=== PATIENT | male | born 1970 | race Caucasian/White ===

== ENCOUNTER → 2016-12-07 | Outpatient (CLI) | payer BC ==
--- NOTE | 2016-12-07 21:37 | PN ---
DATE OF SERVICE: 12/07/2016 This patient is a 46-year-old gentleman who has been followed in the sleep center for treatment of severe obstructive sleep apnea/hypopnea syndrome. Patient continues to use his CPAP equipment every night without significant problem related to the pressure or the mask. I checked patient's CPAP unit. The reading showed usage 28 out of 30 nights for more 4 hours. Average usage is 7.1 hours. Leak is 10 liters per minute which is in good range. Apnea-hypopnea index is 3.6 for the last month, which is normal range. Patient does not feel any sleepiness during the day. [place] Sleepiness Scale is 4. His weight is down from 231 pounds to 224 pounds. MEDICATIONS: 1. Metoprolol. 2. Losartan. 3. Ranitidine. During physical exam, the patient is in no distress. VITAL SIGNS: BP 128/75, HR 60, RR 16. Height 5 feet 7 inches. Weight 224. BMI 35.0. Temperature 97.7. HEENT: PERRLA, EOMI. Evaluation of oropharynx showed tongue protrudes midline; extremely low position of soft palate. NECK: Supple. No JVD. Thyroid is not palpable. LUNGS: Clear to percussion and to auscultation. Good air exchange. No wheezing or rhonchi. HEART: S1, S2 regular. No murmurs, gallops or rubs. ABDOMEN: Slightly obese. EXTREMITIES: No clubbing or cyanosis. ELECTRIC MULE DRIVER: Awake, alert, and oriented x3. Cranial nerves 2 to 7 intact. There is no fasciculation or atrophy noted. No focal deficits observed. IMPRESSION: 1. Severe obstructive sleep apnea/hypopnea syndrome, controlled with CPAP at 9 cm of water. Patient demonstrated good compliance and is benefitting from treatment. No symptoms of excessive daytime sleepiness. [place] Sleepiness Scale is 4. 2. Mild obesity; body mass index of 35.0. Patient lost her pounds since his previous visit. 3. Hypertension. 4. Acid reflux. 5. Status post vasectomy. PLAN: 1. Continue treatment with CPAP every night for the whole night. 2. Continue losing weight. 3. Sleep hygiene with regular time in bed for at least 8 hours. 4. No driving if feeling any sleepiness. Precautions related to driving. Patient is aware of civil and criminal liability for unsafe driving. 5. Prescription for all necessary CPAP supplies, including tube, filters and mask. Thank you very much for allowing me to participate in the management of your patient. Sincerely, Manjit Castro MD, PhD, FAASM. Diplomat of [place] [employer] Medicine, Sleep Medicine Board by [place], [place] [employer] of [employer]
== END | disposition home or self-care (01) ==
LOC: SLEEP 16:17
PROVIDERS: ATTEND Internal Medicine
DX: G47.33 Obstructive sleep apnea (adult) (pediatric) (principal); E66.9 Obesity, unspecified; Z68.35 Body mass index [BMI] 35.0-35.9, adult; I10 Essential (primary) hypertension; K21.9 Gastro-esophageal reflux disease without esophagitis; Z98.52 Vasectomy status; Z79.899 Other long term (current) drug therapy

== ENCOUNTER → 2017-01-02 | Outpatient (CLI) | payer BC ==
[2017-01-02 17:25] LABS: Anion Gap 11 mmol/L; Blood Urea Nitrogen 17 mg/dL (9-20); Calcium 8.9 mg/dL (8.4-10.2); Carbon Dioxide 27 mmol/L (22-30); Chloride 103 mmol/L (98-107); Glucose 82 mg/dL (74-99); Magnesium 2.1 mg/dL (1.6-2.3); Non-African American GFR(MDRD) >60 (>60 ml/min/1.73 sqM); Sodium 141 mmol/L (137-145)
== END | disposition home or self-care (01) ==
LOC: LABWHC1 16:43
PROVIDERS: ATTEND Internal Medicine
DX: I10 Essential (primary) hypertension (principal)
CPT/HCPCS: 36415; 80048; 83735

== ENCOUNTER → 2017-08-17 | Outpatient (CLI) | payer BC ==
[2017-08-17 08:27] LABS: Basophils # (A) 0.1 k/uL (0-0.2); Basophils % (A) 1 %; CH 32.3; CHCM 34.7; Eosinophils # (A) 0.4 k/uL (0-0.7); Eosinophils % (A) 5 %; HCT 43.6 % (39.0-53.0); HDW 2.93; HGB 14.7 gm/dL (13.0-17.5); Luc # (Auto) 0.13; Luc % (Auto) 2; Lymphocytes # (A) 1.6 k/uL (1.0-4.8); Lymphocytes % (A) 21 %; MCH 31.6 pg (25.0-35.0); MCHC 33.8 g/dL (31.0-37.0); MCV 93.5 fL (80.0-100.0); Mean Platelet Volume 7.4; Monocytes # (A) 0.6 k/uL (0-1.0); Monocytes % (A) 8 %; Neutrophils # (A) 4.7 k/uL (1.3-7.7); Neutrophils % (A) 64 %; RBC 4.66 m/uL (4.30-5.90); RDW 14.6 % (11.5-15.5); WBC 7.4 k/uL (3.8-10.6)
[2017-08-17 08:44] LABS: Appearance,Urine Clear (Clear); Bilirubin,Urine Negative (Negative); Glucose,Urine (UA) Negative (Negative); Ketones,Urine Negative (Negative); Leukocyte Esterase,Urine Negative (Negative); Nitrite,Urine Negative (Negative); PH, Urine 5.5 (5.0-8.0); Protein,Urine Trace (Negative); Specific Gravity,Urine 1.021 (1.001-1.035); UA Billing (MACRO vs. MICRO) CHEM; Urobilinogen,Urine <2.0 mg/dL (<2.0)
[2017-08-17 09:14] LABS: ALT 37 U/L (21-72); AST 21 U/L (17-59); Alkaline Phosphatase 55 U/L (38-126); Anion Gap 8 mmol/L; Blood Urea Nitrogen 19 mg/dL (9-20); Calcium 9.2 mg/dL (8.4-10.2); Carbon Dioxide 29 mmol/L (22-30); Chloride 106 mmol/L (98-107); Cholesterol 140 mg/dL (<200); Creatine Kinase 151 U/L (55-170); Glucose 95 mg/dL (74-99); HDL Cholesterol 33 mg/dL (40-60); Non-African American GFR(MDRD) 51 (>60 ml/min/1.73 sqM); Potassium 4.3 mmol/L (3.5-5.1); Sodium 143 mmol/L (137-145); Total Bilirubin 0.7 mg/dL (0.2-1.3); Total Protein 6.7 g/dL (6.3-8.2); Uric Acid 6.9 mg/dL (3.5-8.5)
[2017-08-17 09:46] LABS: Prostate Specific Antigen 0.63 ng/mL (0.00-4.00)
== END | disposition home or self-care (01) ==
LOC: LABWHC1 07:33
PROVIDERS: ATTEND Internal Medicine
DX: G47.33 Obstructive sleep apnea (adult) (pediatric) (principal); N40.0 Benign prostatic hyperplasia without lower urinary tract symptoms; J30.2 Other seasonal allergic rhinitis; I10 Essential (primary) hypertension
CPT/HCPCS: 36415; 80053; 80061; 81003; 82306; 82550; 83036; 83735; 84153; 84439; 84443; 84550; 85025

== ENCOUNTER → 2018-03-07 | Outpatient (CLI) | payer BC ==
--- NOTE | 2018-03-07 18:08 | PN ---
PROGRESS NOTE DATE OF SERVICE: 03/07/2018 This 47-year-old gentleman has been followed in Sleep Center for treatment of obstructive sleep apnea-hypopnea syndrome. Patient continues to use his CPAP equipment every night for the whole night without significant problems related to mask fitting, pressure, or humidification. [place] Sleepiness Scale today is 4. The patient demonstrated good compliance with treatment. His weight is up comparing with the previous visit, on 8 pounds. MEDICATIONS: Metoprolol, losartan, Ranitidine. PHYSICAL EXAM: Patient in no distress. BP 124/81, HR 73, RR 16, height 5 feet 7 inches, weight 232.2, BMI 36.3, temperature 97.8. Oxygen saturation on room air 96%. Oropharynx: Extremely low position of soft palate. Neck Supple, no JVD. Thyroid is not palpable. LUNGS Clear to percussion and to auscultation. Good air exchange. No wheezing or rhonchi. HEART S1, S2 regular. No murmurs, gallops, or rubs. ABDOMEN: Slightly obese. Soft and nontender. Bowel sounds are present. No organomegaly appreciated. EXTREMITIES No clubbing or cyanosis. GIS SPECIALIST Awake, alert, and oriented X3. Cranial nerves 2 to 7 intact. There is no fasciculation or atrophy. noted. No focal deficits observed. IMPRESSION: 1. Severe obstructive sleep apnea-hypopnea syndrome. The patient demonstrated good compliance with treatment benefitting from treatment. 2. Mild obesity BMI 36.3. 3. Hypertension. 4. Acid reflux. 5. Status post vasectomy. PLAN: 1. Patient will continue to use CPAP equipment every night for the whole night. 2. Losing weight. 3. Sleep hygiene with regular time bed for at least 8 hours. 4. No driving if feeling sleepiness. Thank you very much for allowing me to participate in management of your patient. Sincerely, Manjit Castro MD, PhD, FAASM Diplomat of [place] [employer] Specialties [place] Board of Internal Medicine Cardiac Cath Lab Radiology Technologist of [facility] [place] MMODL / GARLANDN: [id number] /
== END | disposition home or self-care (01) ==
LOC: SLEEP 16:42
PROVIDERS: ATTEND Internal Medicine
DX: G47.33 Obstructive sleep apnea (adult) (pediatric) (principal); E66.9 Obesity, unspecified; I10 Essential (primary) hypertension; K21.9 Gastro-esophageal reflux disease without esophagitis; Z98.890 Other specified postprocedural states; Z68.36 Body mass index [BMI] 36.0-36.9, adult; Z99.89 Dependence on other enabling machines and devices; Z79.899 Other long term (current) drug therapy

== ENCOUNTER → 2018-08-30 | Outpatient (CLI) | payer BC ==
[2018-08-30 09:51] LABS: Basophils # (A) 0.1 k/uL (0-0.2); Basophils % (A) 1 %; Eosinophils # (A) 0.3 k/uL (0-0.7); Eosinophils % (A) 5 %; HGB 15.2 gm/dL (13.0-17.5); Lymphocytes # (A) 1.7 k/uL (1.0-4.8); Lymphocytes % (A) 26 %; MCH 31.4 pg (25.0-35.0); MCHC 33.8 g/dL (31.0-37.0); MCV 92.7 fL (80.0-100.0); Mean Platelet Volume 6.8; Monocytes # (A) 0.5 k/uL (0-1.0); Monocytes % (A) 8 %; Neutrophils # (A) 3.7 k/uL (1.3-7.7); Neutrophils % (A) 58 %; Platelet Count 300 k/uL (150-450); RBC 4.86 m/uL (4.30-5.90); RDW 13.4 % (11.5-15.5); WBC 6.4 k/uL (3.8-10.6)
[2018-08-30 11:16] LABS: Appearance,Urine Clear (Clear); Bilirubin,Urine Negative (Negative); Blood,Urine Negative (Negative); Color,Urine Yellow; Glucose,Urine (UA) Negative (Negative); Ketones,Urine Negative (Negative); Leukocyte Esterase,Urine Negative (Negative); Nitrite,Urine Negative (Negative); PH, Urine 5.5 (5.0-8.0); Protein,Urine Negative (Negative); Specific Gravity,Urine 1.017 (1.001-1.035); Urobilinogen,Urine <2.0 mg/dL (<2.0)
[2018-08-30 15:43] LABS: Albumin 4.3 g/dL (3.80-4.90); Albumin/Globulin Ratio 2.26 (1.20-2.10); Anion Gap 5.8 mmol/L (4.00-12.00); Calcium 9.4 mg/dL (8.7-10.3); Carbon Dioxide 27.2 mmol/L (21.6-31.8); Globulin 1.9 g/dL (2.1-3.7); LDL Cholesterol,Calculated 90.2 mg/dL (0.0-131.0); Magnesium 1.8 mg/dL (1.5-2.4); Potassium 4.3 mmol/L (3.5-5.5); Total Bilirubin 0.5 mg/dL (0.3-1.2); Total Protein 6.2 g/dL (6.2-8.2); Uric Acid 6.7 mg/dL (3.7-8.7); VLDL Calculation 22.8 mg/dL (5.00-40.00)
[2018-08-30 15:50] LABS: T4, Free (Free Thyroxine) 1.2 ng/dL (0.80-1.80)
[2018-08-30 17:21] LABS: Hemoglobin A1C 5.4 % (4.0-6.0)
== END | disposition home or self-care (01) ==
LOC: LABWHC1 08:39
PROVIDERS: ATTEND Internal Medicine
DX: G47.33 Obstructive sleep apnea (adult) (pediatric) (principal); E66.9 Obesity, unspecified; I10 Essential (primary) hypertension; N40.0 Benign prostatic hyperplasia without lower urinary tract symptoms
CPT/HCPCS: 36415; 80053; 80061; 81003; 82306; 83036; 83735; 84153; 84439; 84443; 84550; 85025

== ENCOUNTER → 2019-05-08 | Outpatient (CLI) | payer BC ==
--- NOTE | 2019-05-08 17:45 | PN ---
PROGRESS NOTE DATE OF SERVICE: 05/08/2019 This patient is a 48-year-old gentleman who has been followed in the sleep center for treatment of obstructive sleep apnea-hypopnea syndrome. The patient has two CPAP units: one [place] The patient continues to use CPAP equipment every night for the whole night. No snoring with the machine. No excessive daytime sleepiness. [place] Sleepiness Scale is 5. I checked both units. For the last year, for 365 nights the patient used one unit 85 nights and another unit for 275 nights, which is totally 361 nights of usage. This showed very good compliance. Average usage is 7.3 hours. Reading from the machine showed CPAP pressure 9 cm of water, apnea-hypopnea index 2.3, with leak around 8 L/minute, which is in normal range. MEDICATIONS: 1. Metoprolol. 2. Losartan. 3. Ranitidine. PHYSICAL EXAMINATION: GENERAL: A pleasant gentleman without distress. VITAL SIGNS: BP 132/90, HR 72, RR 16, height 5 feet 7 inches, weight 232 pounds. Body mass index 36.3. Temperature 98.1, oxygen saturation at room air 98%. HEENT: PERRLA, EOMI. Evaluation of oropharynx showed tongue protrudes midline. Low position of soft palate. Mallampati IV. NECK: Supple. No JVD. Thyroid is not palpable. LUNGS: Clear to percussion and to auscultation. Good air exchange. No wheezing or rhonchi. HEART: S1, S2 regular. No murmurs, gallops or rubs. ABDOMEN: Obese. EXTREMITIES: No clubbing or cyanosis. CHOCOLATE COATER: Awake, alert, and oriented X3. Cranial nerves 2 to 7 intact. There is no fasciculation or atrophy. noted. No focal deficits observed. IMPRESSION: 1. Severe obstructive sleep apnea-hypopnea syndrome. Patient demonstrated practically 100% compliance with treatment, benefitting from treatment. 2. Hypertension. 3. Acid reflux. 4. Mild obesity. 5. Status post vasectomy. PLAN: 1. Patient will continue to use CPAP equipment every night for the whole night. 2. Losing weight. 3. Sleep hygiene with regular time in bed for 7-1/2 to 8 hours. 4. Precautions related to driving. No driving if feeling any sleepiness. 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 He is aware of civil and criminal liability for unsafe driving. 5. We will maintain all necessary prescriptions for CPAP supplies, including mask, tube, filters. Patient is using Mirage FX standard nasal mask. Thank you very much for allowing me to participate in the management of your patient. Sincerely, Manjit Castro MD, PhD, FAASM Diplomat of [employer] Board of [employer] Specialties [employer] Board of Internal Medicine [place] Technician of [facility] [place] MMODL / GARLANDN: [id number] /
== END | disposition home or self-care (01) ==

== ENCOUNTER → 2019-08-30 | Outpatient (CLI) | payer BC ==
[2019-08-30 08:35] LABS: Basophils # (A) 0.1 k/uL (0-0.2); Basophils % (A) 1 %; Eosinophils # (A) 0.4 k/uL (0-0.7); Eosinophils % (A) 7 %; HCT 41.8 % (39.0-53.0); HGB 14.8 gm/dL (13.0-17.5); Lymphocytes # (A) 1.2 k/uL (1.0-4.8); Lymphocytes % (A) 21 %; MCH 31.7 pg (25.0-35.0); MCHC 35.3 g/dL (31.0-37.0); MCV 89.9 fL (80.0-100.0); Mean Platelet Volume 5.7; Monocytes # (A) 0.5 k/uL (0-1.0); Monocytes % (A) 9 %; Neutrophils # (A) 3.5 k/uL (1.3-7.7); Neutrophils % (A) 61 %; Platelet Count 311 k/uL (150-450); RBC 4.65 m/uL (4.30-5.90); RDW 13.4 % (11.5-15.5); WBC 5.8 k/uL (3.8-10.6)
[2019-08-30 16:57] LABS: African American GFR (CKD) 69.3 (60.0-200.0); Albumin 4.4 g/dL (3.80-4.90); Albumin/Globulin Ratio 2.32 (1.60-3.17); Anion Gap 6.2 mmol/L (4.00-12.00); Calcium 9.4 mg/dL (8.7-10.3); Carbon Dioxide 27.8 mmol/L (21.6-31.8); Chol/HDL Ratio 4.41; Globulin 1.9 g/dL (1.6-3.3); LDL Cholesterol,Calculated 87.8 mg/dL (0.0-131.0); Magnesium 1.9 mg/dL (1.5-2.4); Non-African American GFR(CKD) 59.8 (60.0-200.0); Potassium 4.2 mmol/L (3.5-5.5); Total Bilirubin 0.6 mg/dL (0.3-1.2); Total Protein 6.3 g/dL (6.2-8.2); VLDL Calculation 21.2 mg/dL (5.00-40.00)
[2019-08-30 20:23] LABS: Hemoglobin A1C 5.1 % (4.0-6.0)
== END | disposition home or self-care (01) ==
LOC: LABWHC1 07:56
PROVIDERS: ATTEND Internal Medicine
DX: I10 Essential (primary) hypertension (principal); E78.2 Mixed hyperlipidemia; N40.0 Benign prostatic hyperplasia without lower urinary tract symptoms
CPT/HCPCS: 36415; 80053; 80061; 83036; 83735; 84153; 84443; 85025

== ENCOUNTER → 2020-09-03 | Outpatient (CLI) | payer BC ==
[2020-09-03 08:09] LABS: Basophils # (A) 0.1 k/uL (0-0.2); Basophils % (A) 1 %; Eosinophils # (A) 0.3 k/uL (0-0.7); Eosinophils % (A) 5 %; HCT 45.5 % (39.0-53.0); Lymphocytes # (A) 1.6 k/uL (1.0-4.8); Lymphocytes % (A) 24 %; MCH 31.6 pg (25.0-35.0); MCHC 35.1 g/dL (31.0-37.0); MCV 90.1 fL (80.0-100.0); Mean Platelet Volume 6.7; Monocytes # (A) 0.6 k/uL (0-1.0); Monocytes % (A) 9 %; Neutrophils % (A) 60 %; Platelet Count 286 k/uL (150-450); RBC 5.05 m/uL (4.30-5.90); RDW 12.6 % (11.5-15.5); WBC 6.6 k/uL (3.8-10.6)
[2020-09-03 10:46] LABS: African American GFR (CKD) 75.3 (60.0-200.0); Albumin 4.5 g/dL (3.80-4.90); Albumin/Globulin Ratio 2.05 (1.60-3.17); Anion Gap 4.9 mmol/L (4.00-12.00); BUN/Creat Ratio 16.15 Ratio (12.00-20.00); Calcium 9.7 mg/dL (8.7-10.3); Carbon Dioxide 29.1 mmol/L (21.6-31.8); Chol/HDL Ratio 5.6; Globulin 2.2 g/dL (1.6-3.3); LDL Cholesterol,Calculated 108.6 mg/dL (0.0-131.0); Potassium 3.9 mmol/L (3.5-5.5); Total Bilirubin 0.7 mg/dL (0.2-1.2); Total Protein 6.7 g/dL (6.2-8.2); VLDL Calculation 29.4 mg/dL (5.00-40.00)
[2020-09-03 10:56] LABS: Prostate Specific Antigen 0.5 ng/mL (0.0-2.5)
== END | disposition home or self-care (01) ==
LOC: LABWHC1 07:10
PROVIDERS: ATTEND Internal Medicine
DX: Z00.00 Encounter for general adult medical examination without abnormal findings (principal); N40.0 Benign prostatic hyperplasia without lower urinary tract symptoms; E78.2 Mixed hyperlipidemia
CPT/HCPCS: 36415; 80053; 80061; 84153; 84443; 85025

== ENCOUNTER → 2021-07-07 | Outpatient (CLI) | payer BC ==
--- NOTE | 2021-07-07 17:36 | US ---
EXAMINATION TYPE: US kidneys/renal and bladder DATE OF EXAM: 07/07/2021 COMPARISON: 01/25/2011 CLINICAL HISTORY: 50-year-old male R94.4 Abn results kidney function studies. Patient states there is an "area" his doctor follows on the left kidney. EXAM MEASUREMENTS: Right Kidney: 11.4 x 4.6 x 6.6 cm Left Kidney: 11.2 x 4.4 x 6.1 cm Right Kidney: No hydronephrosis . Left Kidney: 1.4 x 0.6 x 0.7cm somewhat linear echogenic area noted within the midpole cortex. The pr eviously seen small 8 mm cortical lesion, probable cyst in 2010 is no longer seen. Bladder: wnl IMPRESSION: 1. No hydronephrosis. 2. A 1.4 x 0.7 cm somewhat linear echogenic area within the left midpole renal cortex. This may repre sent an area of cortical scarring, not seen in 2011. Six-month follow-up ultrasound to reassess.
== END | disposition home or self-care (01) ==
LOC: RADUSWWP 12:08
PROVIDERS: ATTEND Internal Medicine
DX: R93.422 Abnormal radiologic findings on diagnostic imaging of left kidney (principal)
CPT/HCPCS: 76770

== ENCOUNTER → 2022-04-19 | Outpatient (CLI) | payer BC ==
--- NOTE | 2022-04-19 16:44 | P.PN ---
Subjective DATE: 04/19/2022 FOLLOW UP VISIT. Patient with obstructive sleep apnea hypopnea syndrome return to sleep center for follow-up visit. Information from previous visit have been reviewed. Patient is using PAP equipment every night for the whole night, getting PAP supplies in time. She received new Pap unit. The patient does not have significant problems with the mask, PAP unit and humidification. [place] sleepiness scale is for. I checked information from PAP unit. PAP unit pressure 512, average 10.5 cm H2O. Usage is 100 % for more then 4 hours patient is using 2 Units, average 6.8 hours per night. Leak is 7.8 l/m, which is in acceptable range. Apnea Hypopnea Index is 2.1, which is normal. MEDICATIONS:1. Metoprolol 50 mg once a day 2. Atorvastatin 40 mg once a day 3. Losartan hydrochlorothiazide 66037 milligrams once a day 4. Famotidine 40 mg once a day During physical exam: GENERAL: A pleasant patient without any distress. VITAL SIGNS: BP 118/80, HR 69, RR 16, weight 229.4, temperature 97.1, oxygen saturation at room air 97 % . HEENT: PERRLA, EOMI.low position of soft palate, Mallapati 4. NECK: Supple. No JVD. LUNGS: Clear to percussion and to auscultation. Good air exchange. No wheezing or rhonchi. HEART: S1, S2 regular. ABDOMEN: Soft and nontender. Obese EXTREMITIES: No clubbing or cyanosis. SAND TECHNICIAN: Awake, alert, and oriented x3. No focal deficit. Impressions: 1. Obstructive sleep apnea-hypopnea syndrome. Patient demonstrated great compliance with treatment, benefiting from treatment. 2. Hypertension. 3. Acid reflux. 4. Mild obesity. 5. Status post vasectomy. 6. Status post must tonsillectomy in childhood. Plan: 1. Continue using PAP equipment every night for the whole night. 2. To change air filter at least 1-2 times per month. 3. PAP unit should stay lower then position of the head. 4. Advised patient to remove all remaining water from humidifier canister daily and make it dry after each usage. Refill canister with fresh distilled water before each usage. 5. Sleep hygiene with regular time in bed for at least 8 hours. 6. Precautions related to driving. No driving if feel any sleepiness. 7. I will maintain prescription for PAP supplies including mask, tube, filters. 8. Follow up visit in 6 months or earlier if patient has any problems. 9. Watching and losing weight. Thank you very much for allowing me to participate in the management of your patient. Manjit Castro MD, PhD, FAASM. Diplomat of [employer] Board of Sleep Medicine, Sleep Medicine Board by [employer] of [employer] Medicine Enrollment Coordinator of [facility] [place]
== END ==
LOC: SLEEP 16:14
PROVIDERS: ATTEND Internal Medicine
DX: G47.33 Obstructive sleep apnea (adult) (pediatric) (principal); I10 Essential (primary) hypertension; K21.9 Gastro-esophageal reflux disease without esophagitis; E66.9 Obesity, unspecified; Z90.09 Acquired absence of other part of head and neck; Z98.52 Vasectomy status; Z99.89 Dependence on other enabling machines and devices; Z79.899 Other long term (current) drug therapy

== ENCOUNTER → 2022-09-23 | Outpatient (CLI) | payer BC ==
[2022-09-23 09:59] LABS: Appearance,Urine Clear (Clear); Bilirubin,Urine Negative (Negative); Blood,Urine Negative (Negative); Color,Urine Yellow; Glucose,Urine (UA) Negative (Negative); Ketones,Urine Negative (Negative); Leukocyte Esterase,Urine Negative (Negative); Nitrite,Urine Negative (Negative); PH, Urine 5.5 (5.0-8.0); Protein,Urine Negative (Negative); Specific Gravity,Urine 1.019 (1.001-1.035); Urobilinogen,Urine <2.0 mg/dL (<2.0)
[2022-09-23 11:54] LABS: Basophils # (A) 0.06 X 10*3/uL (0.00-0.10); Basophils % (A) 0.9 %; Eosinophils # (A) 0.28 X 10*3/uL (0.04-0.35); Eosinophils % (A) 4.1 %; HCT 41.3 % (39.6-50.0); HGB 14.8 g/dL (13.0-17.0); Immature Grans, Automated 0.4 %; Lymphocytes # (A) 1.62 X 10*3/uL (0.90-5.00); Lymphocytes % (A) 23.5 %; MCH 31.6 pg (27.0-32.0); MCHC 35.8 g/dL (32.0-37.0); MCV 88.1 fL (80.0-97.0); Mean Platelet Volume 9.3 fL (9.5-12.2); Monocytes # (A) 0.74 X 10*3/uL (0.20-1.00); Monocytes % (A) 10.7 %; NRBC Per 100 WBC 0 /100 WBCS (0.0-0.0); Neutrophils # (A) 4.17 X 10*3/uL (1.80-7.70); Neutrophils % (A) 60.4 %; Platelet Count 286 X 10*3/uL (140-440); RBC 4.69 X 10*6/uL (4.40-5.60); RDW 13.2 % (11.5-14.5)
[2022-09-23 12:18] LABS: ALT 44 U/L (10-49); AST 28 U/L (14-35); African American GFR (CKD) 72.9 (60.0-200.0); Albumin 4.3 g/dL (3.8-4.9); Albumin/Globulin Ratio 2.13 (1.60-3.17); Alkaline Phosphatase 72 U/L (41-126); BUN/Creat Ratio 14.55 Ratio (12.00-20.00); Blood Urea Nitrogen 19.2 mg/dL (9.0-27.0); Calcium 9.5 mg/dL (8.7-10.3); Carbon Dioxide 26.8 mmol/L (20.0-27.5); Chloride 105 mmol/L (96-109); Chol/HDL Ratio 3.15 Ratio; Glucose 94 mg/dL (70-110); LDL Cholesterol,Calculated 51.9 mg/dL (0.0-131.0); Non-African American GFR(CKD) 62.9 (60.0-200.0); Sodium 142 mmol/L (135-145); Total Protein 6.4 g/dL (6.2-8.2); Uric Acid 6.2 mg/dL (3.7-8.7)
== END | disposition home or self-care (01) ==
LOC: LABWHC1 07:06
PROVIDERS: ATTEND Internal Medicine
DX: I10 Essential (primary) hypertension (principal); E78.2 Mixed hyperlipidemia; G47.33 Obstructive sleep apnea (adult) (pediatric); N40.0 Benign prostatic hyperplasia without lower urinary tract symptoms
CPT/HCPCS: 36415; 80053; 80061; 81003; 82306; 83036; 83735; 84153; 84439; 84443; 84550; 85025

== ENCOUNTER 2022-12-29 12:23 | Day surgery (SDC) | payer BC ==
[2022-12-26 15:56] VITALS: BMI 34.2
[~2022-12-29 12:23] MED LIST: LACTATED RINGERS 1,000 ML IV SCH; LIDOCAINE 1% (10MG/ML) FOR IV START INTRADERMA PRN
[2022-12-29 13:24] VITALS: RESP 16; TEMP 97.2
[2022-12-29] MEDS ORDERED: fentaNYL (PF) 50 MCG/ML 2 ML AMP ONE (14:19)
[2022-12-29] MEDS ORDERED: MIDAZOLAM 2 MG/2 ML VIAL ONE (14:19)
[2022-12-29] MEDS ORDERED: PROPOFOL 10 MG/ML 20 ML VIAL IV ONE (14:19)
--- NOTE | 2022-12-29 14:38 | P.PCN ---
Date of Procedure: 12/29/22 Procedure(s) Performed: BRIEF HISTORY: Patient is a 52-year-old pleasant white male scheduled for an elective colonoscopy as a part of screening for colon cancer. PROCEDURE PERFORMED: Colonoscopy. PREOPERATIVE DIAGNOSIS: Screening for colon cancer. IV sedation per Anesthesia. PROCEDURE: After informed consent was obtained, the patient, was brought into the endoscopy unit. IV sedation was administered by Anesthesia under continuous monitoring. Digital rectal examination was normal. Initially the Olympus CF-160 flexible video colonoscope was then inserted in the rectum, gradually advanced into the cecum without any difficulty. Careful examination was performed as the scope was gradually being withdrawn. Ileocecal valve and the appendiceal orifice were visualized and appeared normal. Prep was excellent. Mucosa of the cecum, ascending colon, transverse colon, descending colon, sigmoid colon, and rectum appeared normal. Retroflexion was performed in the rectum and no lesions were seen. The patient tolerated the procedure well. IMPRESSION: Normal-appearing colon from rectum to cecum no evidence of colorectal neoplasia. RECOMMENDATIONS: Findings of this examination were discussed with the patient as well as his family. He was advised to have a repeat screening colonoscopy in 10 years..
[2022-12-29 15:04] VITALS: BP 121/81; PULSE 67
== END 2022-12-29 15:12 | disposition home or self-care (01) ==
LOC: ORWHC2ENDO 12:23
PROVIDERS: ATTEND Internal Medicine Gastroenterology
DX: Z12.11 Encounter for screening for malignant neoplasm of colon (principal); I10 Essential (primary) hypertension; G47.33 Obstructive sleep apnea (adult) (pediatric); Z87.891 Personal history of nicotine dependence
CPT/HCPCS: 45378; J2250; J3010; J2704

== ENCOUNTER → 2023-06-06 | Outpatient (CLI) | payer BC ==
--- NOTE | 2023-06-06 17:43 | P.PN ---
Subjective DATE: 06/06/2023 FOLLOW UP VISIT. Patient with obstructive sleep apnea hypopnea syndrome return to sleep center for follow-up visit. Information from previous visit have been reviewed. Patient is using PAP equipment every night for the whole night, getting PAP supplies in time. The patient does not have significant problems with the mask, PAP unit and humidification. [place] sleepiness scale is 4, which is normal. I checked information from PAP unit. PAP unit pressure 5-12, average 7.4 cm H2O. Usage is 100 % for more then 4 hours, average 7 hours per night. Several nights patient used his portable CPAP ResMed unit. Leak is 10.6 l/m, which is in acceptable range. Apnea Hypopnea Index is 1.4, which is normal. MEDICATIONS:1. Metoprolol 25 mg once a day 2. Famotidine 40 mg once a day 3. Atorvastatin 40 mg once a day 4. Losartan 100 mg once a day During physical exam: GENERAL: A pleasant patient without any distress. VITAL SIGNS: BP 143/89, HR 74, RR 12 , weight 187.4, temperature 97.5, oxygen saturation at room air 98 % . HEENT: PERRLA, EOMI.low position of soft palate, Mallapati 4 . NECK: Supple. No JVD. LUNGS: Clear to percussion and to auscultation. Good air exchange. No wheezing or rhonchi. HEART: S1, S2 regular. ABDOMEN: Soft and nontender.[] EXTREMITIES: No clubbing or cyanosis. ADJUTANT GENERAL: Awake, alert, and oriented x3. No focal deficit. Impressions: 1. Obstructive sleep apnea-hypopnea syndrome. Patient demonstrated great compliance with treatment, benefiting from treatment. 2. Hypertension. 3. Acid reflux. 4. Status post vasectomy. 5. Overweight, patient lost 40 pounds since previous visit, present body mass and is 29.7. 6. Status post tonsillectomy. 7. package delivery driver. Plan: 1. Continue using PAP equipment every night for the whole night. 2. To change air filter at least 1-2 times per month. 3. PAP unit should stay lower then position of the head. 4. Advised patient to remove all remaining water from humidifier canister daily and make it dry after each usage. Refill canister with fresh distilled water before each usage. 5. Sleep hygiene with regular time in bed for at least 8 hours. 6. Precautions related to driving. No driving if feel any sleepiness. 7. I will maintain prescription for PAP supplies including mask, tube, filters. 8. Follow up visit in 6 months or earlier if patient has any problems. 9. Watching weight. Thank you very much for allowing me to participate in the management of your patient. Manjit Castro MD, PhD, FAASM. Diplomat of [place] Board of Sleep Medicine, Sleep Medicine Board by [place] [employer] of Internal Medicine Claim Clerk of [facility] [place]
== END ==
LOC: 3 N SLEEP 16:33
PROVIDERS: ATTEND Internal Medicine
DX: G47.33 Obstructive sleep apnea (adult) (pediatric) (principal); I10 Essential (primary) hypertension; K21.9 Gastro-esophageal reflux disease without esophagitis; E66.3 Overweight; Z98.52 Vasectomy status; Z79.899 Other long term (current) drug therapy; Z98.890 Other specified postprocedural states; Z99.89 Dependence on other enabling machines and devices
CPT/HCPCS: 99212

== ENCOUNTER → 2023-10-05 | Outpatient (CLI) | payer BC ==
[2023-10-05 15:12] LABS: HCT 41.4 % (39.6-50.0); HGB 14.3 g/dL (13.0-17.0); MCH 31.3 pg (27.0-32.0); MCHC 34.5 g/dL (32.0-37.0); MCV 90.6 FL (80.0-97.0); Mean Platelet Volume 9.5 FL (9.5-12.2); NRBC Per 100 WBC 0 X 10*3/uL (0.00-0.01); Platelet Count 263 X 10*3/uL (140-440); RBC 4.57 X 10*6/uL (4.40-5.60); RDW 13.2 % (11.5-14.5); WBC 5.59 X 10*3/uL (4.50-10.00)
[2023-10-05 15:47] LABS: ALT 24 U/L (10-49); AST 19 U/L (14-35); Albumin 4.3 g/dL (3.8-4.9); Albumin/Globulin Ratio 2.26 Ratio (1.60-3.17); Alkaline Phosphatase 66 U/L (41-126); BUN/Creat Ratio 10.27 Ratio (12.00-20.00); Blood Urea Nitrogen 11.3 mg/dL (9.0-27.0); Calcium 9.3 mg/dL (8.7-10.3); Carbon Dioxide 25.8 mmol/L (21.6-31.8); Chloride 106 mmol/L (96-109); Chol/HDL Ratio 1.94 Ratio; Globulin 1.9 g/dL (1.6-3.3); Glucose 84 mg/dL (70-110); LDL Cholesterol,Calculated 32.3 mg/dL (0.0-131.0); Magnesium 1.9 mg/dL (1.5-2.4); Potassium 4.4 mmol/L (3.5-5.5); Prostate Specific Antigen 0.42 ng/mL (0.000-3.500); Sodium 140 mmol/L (135-145); Total Bilirubin 0.5 mg/dL (0.3-1.2); Total Protein 6.2 g/dL (6.2-8.2)
== END | disposition home or self-care (01) ==
LOC: LABWHC1 08:26
PROVIDERS: ATTEND Internal Medicine
DX: Z00.01 Encounter for general adult medical examination with abnormal findings (principal); I10 Essential (primary) hypertension; N40.0 Benign prostatic hyperplasia without lower urinary tract symptoms; G47.33 Obstructive sleep apnea (adult) (pediatric); E78.2 Mixed hyperlipidemia
CPT/HCPCS: 36415; 80053; 80061; 82306; 83036; 83735; 84153; 84443; 85027

== ENCOUNTER → 2023-12-13 | Outpatient (CLI) | payer BC ==
--- NOTE | 2023-12-13 17:20 | P.SLEEP ---
History of Present Illness DATE: 12/13/2023 FOLLOW UP VISIT. Patient with obstructive sleep apnea hypopnea syndrome return to sleep center for follow-up visit. Information from previous visit have been reviewed. Patient is using PAP equipment every night for the whole night, getting PAP supplies in time. The patient does not have significant problems with the mask, PAP unit and humidification. [place] sleepiness scale is 3, which is normal. I checked information from PAP unit. PAP unit pressure 5-12, average 7.5 cm H2O. Usage is 100% for more then 4 hours, average 6 and 75 hours per night. Leak is 4.5 l/m, which is in acceptable range. Apnea Hypopnea Index is 1.61, which is normal. MEDICATIONS:1. Metoprolol 25 mg once a day 2. Atorvastatin 40 mg once a day 3. Losartan 100 mg once a day 4. Famotidine 40 mg once a day 5. Wegovy 1.7 mg once a week During physical exam: GENERAL: A pleasant patient without any distress. VITAL SIGNS: Please see below. HEENT: PERRLA, EOMI.low position of soft palate, Mallapati[] . NECK: Supple. No JVD. LUNGS: Clear to percussion and to auscultation. Good air exchange. No wheezing or rhonchi. HEART: S1, S2 regular. ABDOMEN: Soft and nontender.[] EXTREMITIES: No clubbing or cyanosis. PERSONAL INJURY LEGAL ASSISTANT: Awake, alert, and oriented x3. No focal deficit. Impressions: 1. Obstructive sleep apnea-hypopnea syndrome. Patient demonstrated great compliance with treatment, benefiting from treatment. 2. Hypertension. 3. Acid reflux. 4. Status post vasectomy. 5. Status post tonsillectomy. 6. Overweight BMI 29.4. 7. local hazmat driver. Plan: 1. Continue using PAP equipment every night for the whole night. 2. To change air filter at least 1-2 times per month. 3. PAP unit should stay lower then position of the head. 4. Advised patient to remove all remaining water from humidifier canister daily and make it dry after each usage. Refill canister with fresh distilled water before each usage. 5. Sleep hygiene with regular time in bed for at least 8 hours. 6. Precautions related to driving. No driving if feel any sleepiness. 7. I will maintain prescription for PAP supplies including mask, tube, filters. 8. Watching weight. 9. Follow up visit in 6 months or earlier if patient has any problems. Thank you very much for allowing me to participate in the management of your patient. Manjit Castro MD, PhD, FAASM. Diplomat of [place] [employer] of Sleep Medicine, Sleep Medicine Board by [place] Board of Internal Medicine Service Aide of [facility] [place] Past Medical History Past Medical History: GERD/Reflux, Hyperlipidemia, Hypertension, Sleep Apnea/CPAP/BIPAP Additional Past Medical History / Comment(s): Cpap use. History of Any Multi-Drug Resistant Organisms: None Reported Additional Past Surgical History / Comment(s): Calcium deposit removed from cheek bone, vasectomy. Past Anesthesia/Blood Transfusion Reactions: No Reported Reaction Past Psychological History: No Psychological Hx Reported Smoking Status: Former smoker Past Alcohol Use History: Occasional Additional Past Alcohol Use History / Comment(s): Quit smoking 16 yrs ago. Past Drug Use History: None Reported - Past Family History Father Family Medical History: Cancer Medications and Allergies Home Medications Medication Instructions Recorded Confirmed Type Atorvastatin [Lipitor] 10 mg PO DAILY 12/26/22 12/29/22 History Famotidine 40 mg PO DAILY 12/26/22 12/29/22 History Losartan/Hydrochlorothiazide 1 tab PO DAILY 12/26/22 12/29/22 History [Losartan-Hctz 100-25 mg Tab] Lysine 500 mg PO DAILY 12/26/22 12/29/22 History Metoprolol 50 mg PO QAM 12/26/22 12/29/22 History Semaglutide [Ozempic] 0.25 mg SQ WEEKLY 12/29/22 12/29/22 History Allergies Allergy/AdvReac Type Severity Reaction Status Date / Time No Known Allergies Allergy Verified 12/29/22 13:13 Physical Exam Vitals: Vital Signs Temp Pulse Resp BP Pulse Ox 12/13/23 17:02 98.1 F 72 16 167/92 98 Intake and Output 12/13/23 12/13/23 12/13/23 06:59 14:59 22:59 Other: Weight 86.636 kg Sleep Note - Sleep Note Sleep Note: Temperature: 98.1 F Pulse Rate: 72 Respiratory Rate: 16 Blood Pressure: 167/92 SpO2: 98 Height: 5 ft 7 in Weight: 86.636 kg BMI: Neck Circumference:
[2023-12-13 17:28] VITALS: BP 167/92; PULSE 72; RESP 16; TEMP 98.1
== END ==
LOC: 3 N SLEEP 16:10
PROVIDERS: ATTEND Internal Medicine
DX: G47.33 Obstructive sleep apnea (adult) (pediatric) (principal); I10 Essential (primary) hypertension; K21.9 Gastro-esophageal reflux disease without esophagitis; E66.3 Overweight; E78.5 Hyperlipidemia, unspecified; Z68.29 Body mass index [BMI] 29.0-29.9, adult; Z98.890 Other specified postprocedural states; Z90.89 Acquired absence of other organs; Z99.89 Dependence on other enabling machines and devices; Z98.52 Vasectomy status; Z87.891 Personal history of nicotine dependence; Z79.899 Other long term (current) drug therapy
CPT/HCPCS: 99212

== ENCOUNTER → 2024-07-23 | Outpatient (CLI) | payer BC ==
[2024-07-23 16:20] VITALS: BP 123/76; PULSE 72; RESP 16; TEMP 97.9
--- NOTE | 2024-07-23 16:41 | P.PROGSL ---
Subjective DATE: 07/23/2024 FOLLOW UP VISIT. Patient with obstructive sleep apnea hypopnea syndrome return to sleep center for follow-up visit. Information from previous visit have been reviewed. Patient had CPAP unit at home and also has CPAP unit for travel. I checked both CPAP units. Patient is using PAP equipment every night for the whole night, getting PAP supplies in time. The patient does not have significant problems with the mask, PAP unit and humidification. [place] sleepiness scale is 4. I checked information from PAP unit. PAP unit pressure 5-12, average 9.2 cm H2O. Usage is 98% for more then 4 hours, average 7.1 hours per night. Leak is 10 l/m, which is in acceptable range. Apnea Hypopnea Index is 1.6, which is normal. MEDICATIONS have been reviewed, please see below. During physical exam: GENERAL: A pleasant patient without any distress. VITAL SIGNS: Please see below, weight is 192 lbs. HEENT: PERRLA, EOMI.low position of soft palate, Mallapati 3. NECK: Supple. No JVD. LUNGS: Clear to percussion and to auscultation. Good air exchange. No wheezing or rhonchi. HEART: S1, S2 regular. ABDOMEN: Soft and nontender.[] EXTREMITIES: No clubbing or cyanosis. JELLY MAKER: Awake, alert, and oriented x3. No focal deficit. Impressions: 1. Obstructive sleep apnea-hypopnea syndrome. Patient demonstrated great compliance with treatment, benefiting from treatment. 2. Hypertension. 3. Acid reflux. 4. Mild obesity, BMI 30.0. 5. Status post vasectomy. 6. Status post tonsillectomy. 7. taxicab driver. Plan: 1. Continue using PAP equipment every night for the whole night. 2. Sleep hygiene with regular time in bed for at least 7.5-8 hours 3. PAP unit should stay lower then position of the head. 4. Advised patient to remove all remaining water from humidifier canister daily and make it dry after each usage. Refill canister with fresh distilled water before each usage. 5. Watching weight. 6. Precautions related to driving. No driving if feel any sleepiness. 7. I will maintain prescription for PAP supplies including mask, tube, filters. 8. Follow up visit in 6-8 months or earlier if patient has any problems. Thank you very much for allowing me to participate in the management of your patient. Manjit Castro MD, PhD, FAASM. Diplomat of [place] Board of Sleep Medicine, Sleep Medicine Board by [place] Board of Internal Medicine Oil Pipe Inspector of [facility] [place] Objective - Vital Signs Vital Signs: Vital Signs Temp 97.9 F 07/23/24 16:18 Pulse 72 07/23/24 16:18 Resp 16 07/23/24 16:18 BP 123/76 07/23/24 16:18 Pulse Ox 98 07/23/24 16:18 FiO2 Intake & Output 07/22/24 07/23/24 07/23/24 18:59 06:59 18:59 Weight 87.09 kg Home Medications: Home Medications Medication Instructions Recorded Confirmed Type Atorvastatin [Lipitor] 10 mg PO DAILY 12/26/22 07/23/24 History Famotidine 40 mg PO DAILY 12/26/22 07/23/24 History Losartan/Hydrochlorothiazide 1 tab PO DAILY 12/26/22 07/23/24 History [Losartan-Hctz 100-25 mg Tab] Lysine 500 mg PO DAILY 12/26/22 07/23/24 History Metoprolol 50 mg PO QAM 12/26/22 07/23/24 History Semaglutide [Ozempic] 0.25 mg SQ WEEKLY 12/29/22 12/29/22 History Semaglutide [Wegovy] 1.7 mg SQ WEEKLY 07/23/24 07/23/24 History
== END ==
LOC: 3 N SLEEP 15:56
PROVIDERS: ATTEND Internal Medicine
CPT/HCPCS: 99212

== ENCOUNTER → 2024-11-01 | Outpatient (CLI) | payer BC ==
[2024-11-01 12:50] LABS: Basophils # (A) 0.07 X 10*3/uL (0.00-0.10); Basophils % (A) 0.8 %; Eosinophils # (A) 0.24 X 10*3/uL (0.04-0.35); Eosinophils % (A) 2.9 %; HCT 43.3 % (39.6-50.0); HGB 14.6 g/dL (13.0-17.0); Lymphocytes # (A) 1.56 X 10*3/uL (0.90-5.00); Lymphocytes % (A) 18.8 %; MCH 30.5 pg (27.0-32.0); MCHC 33.7 g/dL (32.0-37.0); MCV 90.6 FL (80.0-97.0); Mean Platelet Volume 9.3 FL (9.5-12.2); Monocytes # (A) 0.85 X 10*3/uL (0.20-1.00); Monocytes % (A) 10.3 %; NRBC Per 100 WBC 0 X 10*3/uL (0.00-0.01); Neutrophils # (A) 5.55 X 10*3/uL (1.80-7.70); Platelet Count 283 X 10*3/uL (140-440); RBC 4.78 X 10*6/uL (4.40-5.60); RDW 12.5 % (11.5-14.5); WBC 8.29 X 10*3/uL (4.50-10.00)
[2024-11-01 13:47] LABS: Appearance,Urine Clear (Clear); Bilirubin,Urine Negative (Negative); Blood,Urine Negative (Negative); Color,Urine Yellow (Yellow); Ketones,Urine Negative (Negative); Nitrite,Urine Negative (Negative); PH, Urine 5.5; Specific Gravity,Urine 1.018 (1.001-1.030); Urobilinogen,Urine 0.2 E.U./DL
[2024-11-01 13:58] LABS: ALT 21 U/L (10-49); AST 18 U/L (14-35); Albumin 4.3 g/dL (3.8-4.9); Albumin/Globulin Ratio 2.05 Ratio (1.60-3.17); Alkaline Phosphatase 74 U/L (41-126); Blood Urea Nitrogen 15.6 mg/dL (9.0-27.0); Calcium 9.1 mg/dL (8.7-10.3); Carbon Dioxide 24.9 mmol/L (21.6-31.8); Chloride 108 mmol/L (96-109); Chol/HDL Ratio 2.31 Ratio; Globulin 2.1 g/dL (1.6-3.3); Glucose 88 mg/dL (70-110); LDL Cholesterol,Calculated 37.9 mg/dL (0.0-131.0); Potassium 4.7 mmol/L (3.5-5.5); Prostate Specific Antigen 0.43 ng/mL (0.000-3.500); Sodium 141 mmol/L (135-145); Total Bilirubin 0.7 mg/dL (0.3-1.2); Total Protein 6.4 g/dL (6.2-8.2); Uric Acid 5.3 mg/dL (3.7-8.7); VLDL Calculation 10.78 mg/dL (5.00-40.00)
== END | disposition home or self-care (01) ==
LOC: LABWHC1 08:01
PROVIDERS: ATTEND Internal Medicine
DX: Z00.00 Encounter for general adult medical examination without abnormal findings (principal); I10 Essential (primary) hypertension; E78.2 Mixed hyperlipidemia; N40.0 Benign prostatic hyperplasia without lower urinary tract symptoms; G47.33 Obstructive sleep apnea (adult) (pediatric)
CPT/HCPCS: 36415; 80053; 80061; 81003; 82306; 83036; 83735; 84153; 84443; 84550; 85025

== ENCOUNTER → 2024-12-03 | Outpatient (CLI) | payer BC ==
--- NOTE | 2024-12-03 23:45 | US ---
EXAMINATION TYPE: US kidneys/renal and bladder DATE OF EXAM: 12/03/2024 COMPARISON: CLINICAL INDICATION: Male, 54 years old with history of R94.4 DECREASED GFR; Patient states there is a spot on left kidney that doctor follows up on TECHNIQUE: Grayscale imaging of the bilateral kidneys and urinary bladder: FINDINGS: EXAM MEASUREMENTS: Right Kidney: 11.0 x 4.1 x 5.1 cm Left Kidney: 11.3 x 4.1 x 4.8 cm Right Kidney: No hydronephrosis or masses seen Left Kidney: Cortical lower pole echogenic focus with twinkling artifact = 4.4 mm. Linear echogenic lesion previously seen = 1.4 x 0.2 cm. Bladder: distended, anechoic Bilateral Jets seen Urinary bladder is sonolucent. Posterior wall is normal. IMPRESSION: 1. No acute renal ultrasound abnormality. 2. Nonobstructing inferior pole left renal stones [facility], , 12/03/2024 11:42 PM
== END | disposition home or self-care (01) ==
LOC: RADUSWWP 15:35
PROVIDERS: ATTEND Internal Medicine
DX: N20.0 Calculus of kidney (principal); R94.4 Abnormal results of kidney function studies
CPT/HCPCS: 76770

== ENCOUNTER → 2025-03-25 | Outpatient (CLI) | payer BC ==
[2025-03-25 16:23] VITALS: BP 153/90; PULSE 69; RESP 16; TEMP 97.8
--- NOTE | 2025-03-25 16:57 | P.PROGSL ---
Subjective DATE: 03/25/2025 FOLLOW UP VISIT. Patient with obstructive sleep apnea hypopnea syndrome return to sleep center for follow-up visit. Information from previous visit have been reviewed. Patient is using PAP equipment every night for the whole night, getting PAP supplies in time. The patient does not have significant problems with the mask, PAP unit and humidification. [place] sleepiness scale is 4, which is normal. I checked information from PAP unit. Patient is using his stationary CPAP unit and CPAP unit for travel. PAP unit pressure 5-12, average 8.5 cm H2O. Usage is 70% for more then 4 hours, average 7 hours per night. Leak is 2.0 l/m, which is in acceptable range. Apnea Hypopnea Index is 1.3, which is normal. Other 30% of nights patient is using travel CPAP. Average apnea-hypopnea index about 2, which is normal. MEDICATIONS: Famotidine 40 mg once a day, atorvastatin 40 mg once a day, losartan 100 mg once a day, amlodipine 5 mg twice a day, Wegovy 1.7 mg once a week, lysine 500 mg once a day. During physical exam: GENERAL: A pleasant patient without any distress. VITAL SIGNS: Please see below, weight is 206.4 lbs. HEENT: PERRLA, EOMI.low position of soft palate, Mall[place]ati 3. NECK: Supple. No JVD. LUNGS: Clear to percussion and to auscultation. Good air exchange. No wheezing or rhonchi. HEART: S1, S2 regular. ABDOMEN: Soft and nontender.[] EXTREMITIES: No clubbing or cyanosis. SCORER SINGLE: Awake, alert, and oriented x3. No focal deficit. Impressions: 1. Obstructive sleep apnea-hypopnea syndrome. Patient demonstrated great compliance with treatment, benefiting from treatment. 2. Hypertension. 3. Hyperlipidemia. 4. Acid reflux. 5. Mild obesity, BMI 31.7. 6. Status post tonsillectomy. 7. Status post vasectomy. 8. helper/driver. Plan: 1. Continue using PAP equipment every night for the whole night. 2. Sleep hygiene with regular time in bed for at least 7.5-8 hours 3. PAP unit should stay lower then position of the head. 4. Advised patient to remove all remaining water from humidifier canister daily and make it dry after each usage. Refill canister with fresh distilled water before each usage. 5. Watching weight. 6. Precautions related to driving. No driving if feel any sleepiness. 7. I will maintain prescription for PAP supplies including mask, tube, filters. 8. Follow up visit in 8 months or earlier if patient has any problems. Thank you very much for allowing me to participate in the management of your patient. Manjit Castro MD, PhD, FAASM. Diplomat of [place] [employer], Sleep Medicine Board by [place] [employer] [facility] [place] Objective - Vital Signs Vital Signs: Vital Signs Temp 97.8 F 03/25/25 16:23 Pulse 69 03/25/25 16:23 Resp 16 03/25/25 16:23 BP 153/90 03/25/25 16:23 Pulse Ox 98 03/25/25 16:23 FiO2 Intake & Output 03/24/25 03/25/25 03/25/25 18:59 06:59 18:59 Weight 93.553 kg Home Medications: Home Medications Medication Instructions Recorded Confirmed Type Atorvastatin [Lipitor] 10 mg PO DAILY 12/26/22 07/23/24 History Famotidine 40 mg PO DAILY 12/26/22 07/23/24 History Losartan/Hydrochlorothiazide 1 tab PO DAILY 12/26/22 07/23/24 History [Losartan-Hctz 100-25 mg Tab] Lysine 500 mg PO DAILY 12/26/22 07/23/24 History Metoprolol 50 mg PO QAM 12/26/22 07/23/24 History Semaglutide [Ozempic] 0.25 mg SQ WEEKLY 12/29/22 12/29/22 History Semaglutide [Wegovy] 1.7 mg SQ WEEKLY 07/23/24 07/23/24 History
== END ==
LOC: 3 N SLEEP 16:06
PROVIDERS: ATTEND Internal Medicine
DX: G47.33 Obstructive sleep apnea (adult) (pediatric) (principal); I10 Essential (primary) hypertension; E78.5 Hyperlipidemia, unspecified; K21.9 Gastro-esophageal reflux disease without esophagitis; E66.9 Obesity, unspecified; Z68.31 Body mass index [BMI] 31.0-31.9, adult; Z90.89 Acquired absence of other organs; Z98.890 Other specified postprocedural states; Z99.89 Dependence on other enabling machines and devices
CPT/HCPCS: 99212

== ENCOUNTER → 2025-04-24 | Outpatient (CLI) | payer BC ==
[2025-04-24 10:20] LABS: Basophils # (A) 0.09 X 10*3/uL (0.00-0.10); Basophils % (A) 1.5 %; Eosinophils # (A) 0.30 X 10*3/uL (0.04-0.35); Eosinophils % (A) 5.0 %; HCT 41.7 % (39.6-50.0); HGB 14.6 g/dL (13.0-17.0); Immature Grans, Automated 0.20 %; Lymphocytes # (A) 1.35 X 10*3/uL (0.90-5.00); Lymphocytes % (A) 22.6 %; MCH 31.5 pg (27.0-32.0); MCHC 35.0 g/dL (32.0-37.0); MCV 90.1 FL (80.0-97.0); Monocytes # (A) 0.64 X 10*3/uL (0.20-1.00); Monocytes % (A) 10.7 %; NRBC Per 100 WBC 0 X 10*3/uL (0.00-0.01); Neutrophils # (A) 3.59 X 10*3/uL (1.80-7.70); Neutrophils % (A) 60.0 %; Platelet Count 259 X 10*3/uL (140-440); RBC 4.63 X 10*6/uL (4.40-5.60); RDW 12.7 % (11.5-14.5); WBC 5.98 X 10*3/uL (4.50-10.00)
[2025-04-24 10:50] LABS: ALT 25 U/L (10-49); AST 19 U/L (14-35); Albumin 4.5 g/dL (3.8-4.9); Albumin/Globulin Ratio 2.65 Ratio (1.60-3.17); Alkaline Phosphatase 70 U/L (41-126); Anion Gap 10.80 mmol/L (4.00-12.00); BUN/Creat Ratio 14.08 Ratio (12.00-20.00); Blood Urea Nitrogen 16.9 mg/dL (9.0-27.0); Calcium 9.1 mg/dL (8.7-10.3); Carbon Dioxide 24.2 mmol/L (21.6-31.8); Chloride 108 mmol/L (96-109); Cholesterol 87.00 mg/dL (0.00-200.00); Creatine Kinase 162 U/L (35-257); Globulin 1.7 g/dL (1.6-3.3); Glucose 89 mg/dL (70-110); HDL Cholesterol 41.60 mg/dL (40.00-60.00); LDL Cholesterol,Calculated 35.6 mg/dL (0.0-131.0); Magnesium 1.9 mg/dL (1.5-2.4); Potassium 4.4 mmol/L (3.5-5.5); Sodium 143 mmol/L (135-145); Total Protein 6.2 g/dL (6.2-8.2); Triglycerides 49.20 mg/dL (0.00-149.00); Uric Acid 3.6 mg/dL (3.7-8.7); VLDL Calculation 9.84 mg/dL (5.00-40.00)
[2025-04-24 15:08] LABS: Bilirubin,Urine Negative (Negative); Blood,Urine Negative (Negative); Color,Urine Yellow (Yellow); Ketones,Urine Negative (Negative); Nitrite,Urine Negative (Negative); PH, Urine 6.5; Specific Gravity,Urine 1.018 (1.001-1.030); Urobilinogen,Urine 0.2 E.U./DL
[2025-04-24 15:15] LABS: Bacteria,Urine None Seen (None Seen)
== END | disposition home or self-care (01) ==
LOC: LABWHC1 08:04
PROVIDERS: ATTEND Internal Medicine
DX: I10 Essential (primary) hypertension (principal); E78.2 Mixed hyperlipidemia; G47.33 Obstructive sleep apnea (adult) (pediatric)
CPT/HCPCS: 36415; 80053; 80061; 81001; 82306; 82550; 83036; 83735; 84443; 84550; 85025